=== PATIENT | female | born 1945 | race Caucasian/White ===

== ENCOUNTER 2025-05-21 10:45 | Outpatient (AMB) | payer MEDICARE, OTHER, SELFPAY ==
--- NOTE | 2025-05-21 10:56 | A.OFFPC_ITS ---
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 Patient is also c/o hiatal hernia and acid reflux. Patient needs refill on meds. 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: No Allergies atorvastatin (From Lipitor) Allergy (Severe, Verified 05/21/25 11:12) Unknown lorazepam (From Ativan) Allergy (Severe, Verified 05/21/25 11:12) Unknown morphine Allergy (Severe, Verified 05/21/25 11:12) Unknown Penicillins Allergy (Severe, Verified 05/21/25 11:12) Unknown tetraycline Allergy (Severe, Uncoded 05/21/25 11:04) Unknown Medication List - Last Reviewed 05/21/25 by Renetta Gli MA biotin mcg PO diclofenac sodium 75 mg PO BID fluticasone furoate 50 mcg/actuation inhalation hydroxyzine HCl 25 mg PO ONCE PRN omeprazole 20 mg PO DAILY rosuvastatin 10 mg PO DAILY triamcinolone acetonide 0.1% topical BID Tobacco use date assessed: 05/21/25 Fall risk assessment: No Falls in past year Last assessed Fall Risk: 05/21/25 Dental Screening Dental Screen Date: 05/21/25 Did you have a dental visit in the last 12 months?: No Did you have a dental problem in the last 6 months where you did not have access to dental care?: No Was dental information given to patient?: Patient declined HPI HPI Comments History of Present Illness Details 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, hx of bilat ovarian c ysts, GERD, hiatal hernia, HLD, rhinitis, OA, subclinical hypothyroid, Osteopenia, Dry Eyes, Vit d def, microscopic hematuria s/p tubal ligation, hemorrhoud removal, back surgery, josé antonio, jaw surgery, tonsillectomy Social: , has 1 dtr Fhx: Mom nasal/pharynx CA; dad abspetsos ca; Brother of ca (smoker); sister alive w/ spina bifida [place] [facility] Kunal wears glasses Health Maintenance: Colon: cologaurd 2019 Mammo 03/2019 DEXA 2009 PAP 2010 Vaccines: PCV 2016, declined Tdap and Flu AAA screen: EKG: History of Present Illness - The patient is a 79-year-old female pr esenting to [facility]; moved [place] after of . Now living close to her r. - Previous PCP records rec'd and reviewe d - Gastroesophageal Reflux Disease (GERD) . - Omeprazole is ineffective; voice loss 3 weeks ago - History of anxiety, stopped hydroxyzin e; reports hallucinations after abruptly stopping. No more anxiety. - Obesity, BMI 30 - Past low vitamin D. 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 - Daughter and lifestyle supportive of [employer] - Historically, blood in urine observed; no ongoing symptoms. Declined uro referral previously. - Declines tetanus due to past reactions . Review of Systems - Gastrointestinal: Reports ineffective GERD management with omeprazole; Zantac supplement. - Respiratory: Reports losing voice for a week three weeks ago. - Nervous: Denies ongoing hallucinations post-hydroxyzine cessation. - Genitourinary: Denies current urinary symptoms; history of blood in urine observed. - Ophthalmic: Reports dry eyes, managed with mais-yco-ghtlotz drops. - Psychological: Reports anxiety, discon tinued hydroxyzine; mentions significant stress post-'s passing. 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 - Immunological: Declines tetanus vaccin e; mentions adverse reactions in the past. Physical Exam General: Well developed, well nourished, in no acute distress. Appears stated age. Head: Normocephalic, atraumatic. Eyes: Pupils are equal, round and reactive to light and accommodation. Conjunctivae are clear. Vision grossly normal. Lungs: Clear to auscultation bilaterally. No rales, rhonchi or wheeze noted. Good air flow in all angel. Heart: Regular rate and rhythm. No murmurs, click, rubs or gallops are noted. Musculoskeletal: Joints are nontender, without swelling, redness, or effusions. Pulses: Peripheral pulses are equal and palpable bilaterally. Extremities: No clubbing, cyanosis nor edema is noted. Psych: Mood and affect appropriate. Results Pending Discussion Notes During the visit, we reviewed the patient's persistent GERD symptoms, discussed potential medication adjustments, including switching from omeprazole to esomeprazole with a possible dosage increase to enhance symptom control. We emphasized the option for 20 mg twice daily, allowing patient discretion for need-based consumption. Blood in urine previously observed was addressed with plans for urinalysis. Discussion on tetanus vaccine was concluded with patient declining it due to prior adverse reactions. The patient was advised to continue lifestyle improvements, exercise, and maintain the support system with her daughter. Follow-up was planned to review medication effectiveness and coordinate lab work. Patient was given time to ask questions. All questions were answered to their satisfaction. Assessment and Plan 1. Gastroesophageal Reflux Disease (GERD ) - Esomeprazole 20 mg QD, increase as ne eded. - Monitor symptom efficacy. 2. Hyperlipidemia - Continue rosuvastatin; no changes @ th is time 3. Anxiety - Discontinued hydroxyzine. - No new intervention. Sx stable. 4. Obesity - Maintain activity and diet. - Support from a daughter acknowledged. 5. Allergic Rhinitis - Continue Flonase. 6. Blood in urine - Plan urinalysis. - declined aggressive interventions 7. Vaccine - Tetanus & flu vaccine declined. RTO DEV SAWV, SOONER NEEDED. Patient Instructions - Start taking esomeprazole as prescribe d. - Continue rosuvastatin and Flonase as d irected. - Incorporate regular exercise and maint ain healthy eating. - Follow up with blood in urine check du ring labs. - Stay in touch with our office through the [facility] for any concerns or questions. Consent Patient was informed and verbally consented to the use of an ambient scribe for clinic note documentation during this visit. Total time spent caring for the patient today was 45 minutes. This includes time spent before the visit reviewing the chart, time spent during the visit, and time spent after the visit on documentation, reviewing laboratory results, diagnostic imaging, medications, performing a medically necessary evaluation, counseling on diagnoses, care coordination, ordering appropriate tests, ordering appropriate medications, review of tests performed by other providers, reporting test results with the patient, communication with other healthcare providers. [facility] Medical History (Updated 05/21/25 @ 11:38 by Luzma Pizarro, [facility]) Allergic Benign neoplasm of lymph nodes Fracture, ribs Fractured pelvis GERD (gastroesophageal reflux disease) History of bone density study (~2009) History of Papanicolaou smear of cervix (~2010) Ovarian cyst Sinusitis Surgical History (Updated 05/21/25 @ 11:15 by Renetta Gil MA) H/O oral surgery H/O tubal ligation History of colonoscopy (~2018) Hx of cholecystectomy Family History (Updated 05/21/25 @ 11:18 by Renetta Gil MA) Father Cancer Mother Cancer Brother Cancer Social History Household Members: None Both parents involved: No Caregiver staying overnight: No Housing: Condominium Are you a primary career education teacher to a significant other at home: No Do you presently have visiting nurse or other home services: No 75 years or older and lives alone: No Alcohol intake: never Patient Tobacco Use Status: Never used Tobacco e-Cigarette/Vaping Use: Never Used Second Hand Smoke Exposure: No service: No Current occupational status: retired Current occupational exposures/hazards: No Cognitive needs: No Hearing needs: No Vision needs: No Questionnaire PHQ-9 Over the last 2 weeks, how often have you been bothered by any of the following problems? 1. Little interest or pleasure in doing things: not at all 2. Feeling down, depressed, or hopeless: not at all 3. Trouble falling or staying asleep, or sleeping too much: not at all 4. Feeling tired or having little energy: not at all 5. Poor appetite or overeating: not at all 6. Feeling bad about yourself - or that you are a failure or have let yourself or your family down: not at all 7. Trouble concentrating on things, such as reading the newspaper or watching television: not at all 8. Moving or speaking so slowly that other people could have noticed. Or the opposite - being so fidgety or restless that you have been moving around a lot more than usual: not at all 9. Thoughts that you would be better off or of hurting yourself in some way: not at all Total score: 0 Depression Screening Interpretation: Negative Depression Screening Done: Yes 54819 - PHQ-9 Billing: Yes Source: Developed by Drs. Jacky Garvey, Natasha Worthy, Ceasar Clark and colleagues, with an educational suzy from [facility]. Thrive Questionnaire Date Thrive assessed: 05/21/25 I am a: Patient What is your living situation today?: I have a steady place to live Within the past 12 months, did the food you bought not last and you didn't have the money to get more?: Never true Within the past 12 months, did you worry whether your food would run out before you got money to buy more?: Never true Do you have trouble paying for medicines?: No Do you have trouble getting transportation to medical appointments?: No Do you have trouble paying your heating and electricity bill?: No Do you have trouble taking care of your child, family member or friend?: No Do you have trouble with day-to-day activities such as bathing, preparing meals, shopping, managing finances, etc.?: No Are you currently unemployed and looking for a job?: No Are you interested in more education?: No Please select the resources that you would like help with: None Currently or been in a relationship where the following occur: No concerns reported THRIVE Score: 0 AUDIT C Alcohol Use Questionnaire (AUDIT-C) 1. How often do you have a drink containing alcohol?: Never 3. How often do you have six or more drinks on one occasion?: Never Total Score: 0 Score Reviewed/Action Taken: Yes VANESSA-7 AMB Questionnaire VANESSA-7 Date VANESSA - 7 assessed: 05/21/25 Feeling nervous, anxious, or on edge: 1 = Several days Not being able to stop or control worryin = Not at all Worrying too much about different things: 0 = Not at all Trouble relaxin = Not at all Being so restless that it is hard to sit still: 0 = Not at all Becoming easily annoyed or irritable: 0 = Not at all Feeling afraid as if something awful might happen: 0 = Not at all Total VANESSA-7 score (0-4 normal; 5-9 mild; 10-14 moderate; 15-21 severe): 1 Source: Developed by Drs. Jacky Garvey, Natasha Worthy, Ceasar Clark and colleagues, with an educational suzy from [facility]. VANESSA-7 Assessment Billing VANESSA-7 Assessment Tool: VANESSA-7 Assessment 50157 Physical exam (Primary Care) Vital Signs: Last Vital Signs Temp 97.2 F 05/21/25 11:07 Pulse 55 05/21/25 11:07 Resp 12 05/21/25 11:07 BP 108/68 05/21/25 11:07 Pulse Ox 99 05/21/25 11:07 Oxygen Delivery Method Room Air 05/21/25 11:07 BMI result Body Mass Index 30.9 BMI Assessment/Plan discussion: High BMI High, discussed plan: lifestyle Tobacco/Smoking Status: Tobacco use Status Tobacco use date assessed 05/21/25 05/21/25 11:00 Patient Tobacco Use Status Never used Tobacco 05/21/25 11:00 e-Cigarette/Vaping Use Never Used 05/21/25 11:00 PHQ-9: PHQ-9 Score PHQ-9: Total score 0 05/21/25 11:00 Depression Screening Interpretation: Negative Thrive Assessment: Date of Thrive Assessment Date Thrive assessed 05/21/25 05/21/25 11:00 Currently or been in a relationship where the following occur: No concerns reported Coding Level of Care Code New Pt Level 4 (58363) Complex EM visit Add On G2211 Diagnoses Encounter to establish care with new provider Z76.89 Mixed hyperlipidemia E78.2 Hyperlipidemia type: mixed hyperlipidemia Subclinical hypothyroidism E03.8 Osteopenia, unspecified location M85.80 Osteopenia location: unspecified Vitamin D deficiency E55.9 Microscopic hematuria R31.29 Laboratory exam ordered as part of routine general medical examination Z00.00 Tetanus, diphtheria, and acellular pertussis (Tdap) vaccination declined Z28.21 Obesity (BMI 30-39.9) E66.9 Hiatal hernia with GERD K44.9; K21.9 Additional Codes VANESSA-7 Assessment Billing - VANESSA-7 Assessment Tool: VANESSA-7 Assessment 97876 ([id number]) PHQ-9 - 81373 - PHQ-9 Billing: Yes ([id number]) Assessment & Plan Assessment & Plan (1) Encounter to establish care with new provider: Code(s): Z76.89 - Persons encountering health services in other specified circumstances (2) HLD (hyperlipidemia): Code(s): E78.5 - Hyperlipidemia, unspecified Category: Medical Qualifiers: Hyperlipidemia type: mixed hyperlipidemia Qualified Code(s): E78.2 - Mixed hyperlipidemia (3) Subclinical hypothyroidism: Code(s): E03.8 - Other specified hypothyroidism Category: Medical (4) Osteopenia: Code(s): M85.80 - Other specified disorders of bone density and structure, unspecified site Category: Medical Qualifiers: Osteopenia location: unspecified Qualified Code(s): M85.80 - Other specified disorders of bone density and structure, unspecified site (5) Vitamin D deficiency: Code(s): E55.9 - Vitamin D deficiency, unspecified Category: Medical (6) Microscopic hematuria: Code(s): R31.29 - Other microscopic hematuria Category: Medical (7) Laboratory exam ordered as part of routine general medical examination: Code(s): Z00.00 - Encounter for general adult medical examination without abnormal findings Category: Medical (8) Tetanus, diphtheria, and acellular pertussis (Tdap) vaccination declined: Code(s): Z28.21 - Immunization not carried out because of patient refusal Category: Medical (9) Obesity (BMI 30-39.9): Code(s): E66.9 - Obesity, unspecified Category: Medical (10) Hiatal hernia with GERD: Code(s): K44.9 - Diaphragmatic hernia without obstruction or gangrene; K21.9 - Gastro- esophageal reflux disease without esophagitis Category: Medical Plan . Orders: Orders Complete Blood Count no Diff Today E03.8 - Other specified hypothyroidism, E55.9 - Vitamin D deficiency, unspecified, E78.5 - Hyperlipidemia, unspecified, M85.80 - Other specified disorders of bone density and structure, unspecified site, R31.29 - Other microscopic hematuria, Z00.00 - Encounter for general adult medical examination without abnormal findings Comprehensive Met. Panel Today E03.8 - Other specified hypothyroidism, E55.9 - Vitamin D deficiency, unspecified, E78.5 - Hyperlipidemia, unspecified, M85.80 - Other specified disorders of bone density and structure, unspecified site, R31.29 - Other microscopic hematuria, Z00.00 - Encounter for general adult medical examination without abnormal findings Vitamin B12 and Folate Today E03.8 - Other specified hypothyroidism, E55.9 - Vitamin D deficiency, unspecified, E78.5 - Hyperlipidemia, unspecified, M85.80 - Other specified disorders of bone density and structure, unspecified site, R31.29 - Other microscopic hematuria, Z00.00 - Encounter for general adult medical examination without abnormal findings Vitamin D 25-OH Total Today E03.8 - Other specified hypothyroidism, E55.9 - Vitamin D deficiency, unspecified, E78.5 - Hyperlipidemia, unspecified, M85.80 - Other specified disorders of bone density and structure, unspecified site, R31.29 - Other microscopic hematuria, Z00.00 - Encounter for general adult medical examination without abnormal findings Lipid Panel Today E03.8 - Other specified hypothyroidism, E55.9 - Vitamin D deficiency, unspecified, E78.5 - Hyperlipidemia, unspecified, M85.80 - Other specified disorders of bone density and structure, unspecified site, R31.29 - Other microscopic hematuria, Z00.00 - Encounter for general adult medical examination without abnormal findings Microalbumin, Random (w Creat) Today E03.8 - Other specified hypothyroidism, E55.9 - Vitamin D deficiency, unspecified, E78.5 - Hyperlipidemia, unspecified, M85.80 - Other specified disorders of bone density and structure, unspecified site, R31.29 - Other microscopic hematuria, Z00.00 - Encounter for general adult medical examination without abnormal findings TSH reflex Free T4 Today E03.8 - Other specified hypothyroidism, E55.9 - Vitamin D deficiency, unspecified, E78.5 - Hyperlipidemia, unspecified, M85.80 - Other specified disorders of bone density and structure, unspecified site, R31 .29 - Other microscopic hematuria, Z00.00 - Encounter for general adult medical examination without abnormal findings UA CC w/rflx Micro + Cult Today E03.8 - Other specified hypothyroidism, E55.9 - Vitamin D deficiency, unspecified, E78.5 - Hyperlipidemia, unspecified, M85.80 - Other specified disorders of bone density and structure, unspecified site, R30.0 - Dysuria, R31.29 - Other microscopic hematuria, Z00.00 - Encounter for general adult medical examination without abnormal findings Medications: New esomeprazole magnesium 20 mg PO BID 180 caps 2RF rosuvastatin 10 mg PO DAILY 90 tabs 0RF Patient Instructions: Walk-In Care (Urgent Care): We Make it Easy Walk-in for urgent medical issues such as: ? Seasonal Allergies ? Insect Bites ? Cough ? Diarrhea ? Acute Asthma Attacks ? Back, Knee or Joint Pain ? Ear Infection ? Fever without a Rash ? Headaches ? Nausea ? [place] [facility], Rash or Skin Irritation ? Sore Throat ? Sports Physicals ? Vomiting Most insurances are accepted. Patients do not need to be part of the [facility] to seek care at the walk-in clinic. Locations [address] [facility] , [place] [address] ? [phone] [facility] in [place] provides services to ages 18 and over. Open Saturday-Saturday: 7 a.m. to 5 p.m. and Saturday: 9 a.m. to 3 p.m.* *Hours may vary due to staffing availability. To confirm Walk-In Care hours in [place], please call [phone]. [address] [place] [address] ? [phone] [facility] in [place] provides services to ages 12 and over. Open Saturday-Saturday: 8 a.m. to 5 p.m. Hours may vary due to staffing availability. To confirm Walk-In Care hours in [place], please call [phone]. LABORATORY SERVICES: [facility] ? Primary Location [address] [place] [address] Saturday through Saturday 6:00 AM ? 5:00 PM Saturday 7:00 AM ? 11:00 AM* [phone] The [facility] is centrally located near the front entrance of the [facility] for easy outpatient access. Convenient parking is provided for outpatients. *Hours may vary due to staffing availability. To confirm Laboratory hours for any location, please call [phone]. Offsite Location For your convenience, we offer offsite laboratory draw stations at the following locations: [address] [place] [address] ? [address], [address] Saturday through Saturday 7:30 AM ? 1:00 PM* [phone] *Hours may vary due to staffing availability. To confirm Laboratory hours for any location, please call [phone]. [place] ? [address] Saturday through Saturday 6:00 AM ? 3:30 PM* Saturday 6:30 AM ? 3 PM* [phone] *Hours may vary due to staffing availability. To confirm Laboratory hours for any location, please call [phone] [place] [address] Saturday through Saturday 7:30 AM ? 4:00 PM* [phone] *Hours may vary due to staffing availability. To confirm Laboratory hours for any location, please call [phone] [place] [address] Saturday through 9:00 AM ? 4:00 PM* *Hours may vary due to staffing availability. To confirm Laboratory hours for any location, please call [phone]. Appointments are not necessary. Walk-ins are welcome. Like all the departments throughout the [facility], our Lab undergoes frequent reviews to ensure the quality and accuracy of test results, and our staff takes special pride in its status as a nationally accredited facility. Patient Portal: [facility] ONE PATIENT. ONE RECORD. BETTER CARE. [facility] has a fully integrated, cutting- edge mobile electronic health information system that has revolutionized the way we care for our patients and manage our organization. This system improves communication and coordination enabling us to provide safe, higher-quality care, and an overall positive experience for staff and patients. Our first priority, as always, is to deliver the highest quality care possible. The system is running in the background supporting that priority. This portal is for all [facility] services and practices. If you are experiencing any technical difficulties with enrolling or logging into the Patient Portal please complete the [facility] Patient Portal Technical Support Form. [facility] now offers a new secure on-line interactive tool for patients to review their health information ? ?Patient Portal. This interactive web portal will enable patients and their families to take an active role in their care by providing easy, secure access to their health information via the internet. The Patient Portal provides patients with instant access to their health information, including laboratory results, medications, allergies, demographic information, visit history, and more. In addition to managing their own care, parents and health care proxies with authorized consent will appreciate the ability to access the records of those individuals for whom they provide care. Please note: if you wish to gain access (Proxy) to another patient?s portal, you will be required to come to the Medical Records Department in person at [facility]. Both the patient giving proxy access and the proxy will need to provide photo identification and complete the appropriate authorization. The Patient Portal also allows track their appointments online. The [facility] Patient Portal also saves patients time by allowing them to submit updates to their demographic and contact information prior to their visits. Portal email notifications will also alert patients to any new activity on their portal, such as test results and new appointments. In order to initially enroll in the [facility] Patient Portal, you will need to enter some required information including the following: * your [facility] Medical Record number * your personal home email address * name * date of Please note: In order to enroll in the [facility] Patient Portal, we need to have your email address on file in your electronic medical record. ?The email address needs to be specific for one person (yourself) in order for your Portal enrollment to be successful. ?You can update your email address in person with our Registration staff when you are registering for a hospital visit. ?Otherwise, you will need to come to the Health Information Management (Medical Records) Department at [facility]. ?We are open from Saturday ? Saturday from 7:30 a.m. ? 4:30 p.m. ?You will be required to present a photo id. Once you have successfully enrolled in the Patient Portal, you will receive a one-time user id and password for the Portal, sent to your email address. ?This will allow you to log into the Patient Portal within 99 hrs and reset your own logon id and password, and define personal security questions. ?Once your permanent login and password have been set, you can log into the [facility] Patient Portal at any time via the blue button above or from the Portal Logon button on any page of the [facility] website. [facility] Center and [facility] encourage all of our patients to enroll in Patient Portal as it presents a valuable opportunity for patients a nd their families to actively participate in their care and stay healthy Welcome to [facility]. ?We look forward to working with you.
[2025-05-21 11:07] VITALS: BP 108/68; PULSE 55; RESP 12; TEMP 36.2; O2SAT 99; BMI 30.9
--- OUTSIDE RECORDS SUMMARY | 2025-05-21 11:46 | XMS_ITS | Clinical Summary ---
Author Organization [facility] [address] [place] [address] [place] [address] Phone Care Team Providers Care Art Historian Name Role Phone Physician, No Pcp Primary Care Provider Unavaila ble Allergies Active Allergy Reactions Criticality Noted Date Comments Penicillins Rash 08/28/2024 Medications omeprazole (PriLOSEC) [address] capsule Take 1 capsule (20 mg total) by mouth 1 (one) time each day. 03/30/2024 Active rosuvastatin (CRESTOR) 10 mg tablet Take 1 tablet (10 mg total) by mouth 1 (one) time each day. 12/20/2023 Active diclofenac (VOLTAREN) 75 mg EC tablet TAKE 1 TABLET(75 MG) BY MOUTH TWICE DAILY. DO NOT CRUSH, CHEW, OR SPLIT 60 tablet 3 04/21/2025 Active Active Problems Problem Noted Date Diagnosed Date Abnormal stress test 04/05/2025 Encounters Date Type Department Care Team Description 04/14/2025 9:30 AM EDT Office Visit Orthopedics - [address] [phone] César Landers PA Primary osteoarthritis of left knee (Primary Dx); SI (sacroiliac) pain from Last 3 Months Social History Tobacco Use Types Packs/Day Years Used Date Smoking Tobacco: Never Passive Smoke Exposure: Past Smokeless Tobacco: Never Tobacco Cessation:Counseling Given: Not Answered Alcohol Use Standard Drinks/Week Comments Not Currently 0 (1 standard drink = 0.6 oz pur e alcohol) Comments No Sex and Gender Information Value Date Recorded Sex Assigned at Not on file Legal Sex Female 11:36 AM EDT Gender Identity Not on file Sexual Orientation Not on file Obstetrics History Last Filed Vital Signs Vital Sign Reading Time Taken Comments Blood Pressure - - Pulse - - Temperature - - Respiratory Rate 16 04/14/2025 9:20 AM EDT Oxygen Saturation - - Inhaled Oxygen Concentration - - Weight 73.5 kg (162 lb) 04/14/2025 9:20 AM EDT Height 152.4 cm (5') 04/14/2025 9:20 AM EDT Body Mass Index 31.64 04/14/2025 9:20 AM EDT Plan of Treatment Health Maintenance Due Date Last Done Comments DTaP,Tdap,and Td Vaccines (1 - Tdap) 1964 Pneumococcal Vaccine: 50+ Ye ars (1 of 1 - PCV) 1995 Zoster Vaccines (1 of 2) 1995 RSV Immunization Adult Patie nts (1 - 1-dose 75+ series) 2020 Falls Risk Assessment 07/04/2024 Hepatitis C Screening 07/04/2024 Medicare Annual Wellness Visit 07/04/2024 Osteoporosis Screening (Bone Density Screening) 07/04/2024 Social Influencers of Health Screening 07/04/2024 Depression Screening 09/16/2024 COVID-19 Vaccine (2023-2 5 season) 2025 Influenza Vaccine (#1) 2025 HIB Vaccines Aged Out No longer eligi ble based on patient's age to complete this topic HPV Vaccines Aged Out No longer eligi ble based on patient's age to complete this topic Hepatitis A Vaccines Aged Out No long er eligible based on patient's age to complete this topic Hepatitis B Vaccines Aged Out No long er eligible based on patient's age to complete this topic IPV Vaccines Aged Out No longer eligi ble based on patient's age to complete this topic MMR Vaccines Aged Out No longer eligi ble based on patient's age to complete this topic Meningococcal ACWY Vaccine Aged Out N o longer eligible based on patient's age to complete this topic Meningococcal B Vaccine Aged Out No l onger eligible based on patient's age to complete this topic RSV Immunization Patients Un fariba 20 months Aged Out No longer eligible b ased on patient's age to complete this topic Varicella Vaccines Aged Out No longer eligible based on patient's age to complete this topic Procedures Procedure Name Priority Date/Time Associated Diagnosis Comments WA ARTHROCENTESIS/ASP IRATION/INJECTION MAJOR JOINT/BURSA W/O U/S GUIDANCE Routine 04/14/2025 9:30 AM EDT Primary osteoarthritis of left knee from Last 3 Months Results * WA ARTHROCENTESIS/ASPIRATION/INJECTION MAJOR JOINT/BURSA W/O U/S GUIDANCE (04/14/2025 9:30 AM EDT) César Villela PA - 04/14/2025 9:30 AM EDT BARRERA Jean Baptiste 04/14/2025 10:08 AM L Inj/Asp: L knee Indications: pain Details: 22 G needle, anterolateral approach Medications: 60 mg hyaluronate sodium, stabilized 60 mg/3 mL Informed Consent: Site: Knee Laterality: Left Relevant images/test results available and reviewed: yes Health status cleared: Yes Procedure/treatment, purpose, treatment alternatives, risks/potential complications and benefits explained: yes Risk/complications/benefits details: Risks include but are not limited to: The treatment may not accomplish the desired results. Additionally bleeding, infection, damage to tendon, nerve, cartilage, muscle; thinning or lightening of the skin in the area of injection; flushing or redness of the face, elevated blood pressure or blood sugar, allergic reaction, rash, increased pain Benefits include relief of inflammation and pain Patient questions answered: yes Patient agrees, verbalizes understanding, and wants to proceed: yes Consent given by: Patient Informed consent discussion completed by Physician/CODY with patient: Verbal Pre-procedure timeout performed: yes César RUST IN CLINIC/BEDSIDE ORDERABLES Fin al Result from Last 3 Months Insurance MEDICARE [facility] Care Teams Art Historian Relationship Specialty Start Date End Date Physician, No Pcp PCP - General 01/20/25
== END 2025-05-21 11:30 | disposition home or self-care (01) ==
PROVIDERS: PCP Nurse Practitioner Family; Visit Provider Nurse Practitioner Family
DX: E78.2 Mixed hyperlipidemia (principal); E66.9 Obesity, unspecified; E03.8 Other specified hypothyroidism; Z68.30 Body mass index [BMI] 30.0-30.9, adult; M85.80 Other specified disorders of bone density and structure, unspecified site; E55.9 Vitamin D deficiency, unspecified; R31.29 Other microscopic hematuria; Z76.89 Persons encountering health services in other specified circumstances; Z28.21 Immunization not carried out because of patient refusal; K44.9 Diaphragmatic hernia without obstruction or gangrene; K21.9 Gastro-esophageal reflux disease without esophagitis

== ENCOUNTER 2025-05-21 10:45 | Outpatient (REF) | payer MEDICARE, OTHER, SELFPAY ==
[2025-05-21 14:31] LABS: Hematocrit 38.7 % (37.0-47.0); Hemoglobin 12.4 g/dl (12.0-16.0); Mean Corpuscular HGB Conc 32.0 g/dl (31.0-35.0); Mean Corpuscular Hemoglobin 29.1 pg (27.0-33.0); Mean Corpuscular Volume 90.8 fL (80.0-98.0); NRBC Abs Auto 0.000 X10*3/uL (0.0-0.012); NRBC Pct Auto 0.0 /100WBC (0.0-0.2); Platelet Count 291 X10*3/uL (160-400); Red Blood Count 4.26 X10*6/uL (4.20-5.50); White Blood Count 6.0 X10*3/uL (4.8-10.8)
[2025-05-21 14:52] LABS: Alanine Aminotransferase 36 U/L (0-31); Albumin Level 4.4 g/dL (3.5-5.0); Alkaline Phosphatase 86 U/L (39-117); Anion Gap 13 (12-20); Aspartate Amino Transferase 24 U/L (5-31); Blood Urea Nitrogen 22 mg/dL (9-16); Calcium 9.4 mg/dL (8.4-10.2); Carbon Dioxide 28 mmol/L (22-29); Chloride 105 mmol/L (96-108); Cholesterol 201 mg/dL (<200); Estimated Glomerular Filt Rate 50; HDL Cholesterol 45 mg/dL (>40); Potassium 5.0 mmol/L (3.3-5.1); Sodium 141 mmol/L (135-145); Total Protein 7.0 g/dL (6.5-8.0); Triglycerides 218 mg/dL (<150)
[2025-05-21 16:00] LABS: Folate 14.1 ng/mL (> or = 4.0); Vitamin B12 348 pg/mL (200-900)
== END 2025-05-21 10:46 | disposition home or self-care (01) ==
LOC: HO.WFDLDS 10:45
PROVIDERS: PCP Nurse Practitioner Family; Visit Provider Nurse Practitioner Family
DX: Z00.00 Encounter for general adult medical examination without abnormal findings (principal); E78.5 Hyperlipidemia, unspecified; E03.8 Other specified hypothyroidism; E55.9 Vitamin D deficiency, unspecified; M85.80 Other specified disorders of bone density and structure, unspecified site; R31.29 Other microscopic hematuria; E78.2 Mixed hyperlipidemia; Z28.21 Immunization not carried out because of patient refusal; E66.9 Obesity, unspecified; K44.9 Diaphragmatic hernia without obstruction or gangrene; K21.9 Gastro-esophageal reflux disease without esophagitis; Z79.899 Other long term (current) drug therapy; Z76.89 Persons encountering health services in other specified circumstances; Z68.30 Body mass index [BMI] 30.0-30.9, adult
CPT/HCPCS: 36415; 80053; 80061; 82306; 82607; 82746; 84443; 85027; 96127; 99202

== ENCOUNTER 2025-09-01 12:58 | Outpatient (AMB) | payer MEDICARE, OTHER, SELFPAY ==
--- NOTE | 2025-09-01 13:01 | A.OFFVIS_ITS ---
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 Required: No Allergies atorvastatin (From Lipitor) Allergy (Severe, Verified 09/01/25 13:02) Unknown lorazepam (From Ativan) Allergy (Severe, Verified 09/01/25 13:02) Unknown morphine Allergy (Severe, Verified 09/01/25 13:02) Unknown Penicillins Allergy (Severe, Verified 09/01/25 13:02) Unknown tetraycline Allergy (Severe, Uncoded 09/01/25 13:02) Unknown Medication List - Last Reconciled 09/01/25 by Luzma Pizarro, GENERATOR REPAIRER-BC biotin mcg PO diclofenac sodium 75 mg PO BID esomeprazole magnesium 20 mg PO BID fluticasone furoate 50 mcg/actuation inhalation rosuvastatin 10 mg PO DAILY triamcinolone acetonide 0.1% topical BID Do you need a note to return to daycare/school/sports/work: No HPI HPI Comments History of Present Illness Details Here today for AWV. The Medicare Annual Wellness Visit (AWV) is a yearly appointment with a health professional to identify health risks and help reduce them and to create or update a personalized prevention plan. During a Medicare AWV, health professionals should also review any current opioid prescriptions, detect any cognitive impairment, and establish or update medical and family history. 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, hx of bilat ovarian c ysts, GERD, hiatal hernia, HLD, rhinitis, OA, subclinical hypothyroid, Osteopenia, Dry Eyes, Vit d def, microscopic hematuria, obesity s/p tubal ligation, hemorrhoud removal, back surgery, josé antonio, jaw surgery, tonsillectomy Social: , has 1 dtr Crystal Fhx: Mom nasal/pharynx CA; dad abspetsos ca; Brother of ca (smoker); sister alive w/ spina bifida Health Maintenance: Colon: cologaurd 2018, cologaurd ordered today Mammo 03/2019, new order placed today DEXA 2009, new order placed today PAP 2010 Vaccines: PCV 2016, declined Tdap and Flu AAA screen: EKG: done today NSR Labs 05/21/25 LDL 113, TC 201, TG 218 A1c today 5.1% [facility] Opt Kunal wears glasses Visual Acuity: wears glasses, last exam this year Hearing Screening: [place], referred for hearing test today ACP: has HCP and Living will at home, will provide copies to me via portal Dietary/Nutrition/Exercise Edu provided: Y During the course of the visit the patient was educated and counseled about appropriate screening and preventative services. Patient instructions were provided to the patient in written or electronic format. I have reviewed and verified the above information. History of Present Illness The patient is a 79 year old female presenting for her annual Medicare wellness visit. Gastroesophageal Reflux Disease: - The patient reports persistent symptom s of gastroesophageal reflux disease (GERD), which she states is severe and has led to tooth loss. - She has been taking esomeprazole 20 mg twice daily, but finds it is no longer effective. - She reports her symptoms are exacerbat ed when she overeats. - Wonders about taking pantoprazole Obesity: - The patient has obesity with a BMI of 30.4. - She reports difficulty with portion co ntrol, particularly since her , as he used to manage the cooking. - She denies eating between meals but ea ts large portions at mealtimes. - She has a history of trying various di ets, including Weight Watchers, and has used fen-phen in the past. - The patient inquired about weight loss medication to help manage her eating habits. - Wonders about GLP-1 but aware of GI s cristobal effects Alopecia: - The patient reports hair loss with a r eceding hairline and thinning at her part. - She has been taking biotin for a long time. - She notes the hair loss seems to be fr om the follicle and not just breakage. - She denies any family history of hair loss. - She associates the onset with the stre ss following her 's , though she notes it did not occur during his five-year illness. 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 - She can feel the outbreaks coming on w ith a tingling sensation and initiates valacyclovir 500 mg. - She believes her prior regimen was one tablet daily during a flare. - She also uses qkkg-ruo-adwkppv Abreva topically. Allergic Rhinitis: - The patient requests a refill of Flona se for sinus symptoms, particularly to get through the winter. - She used it daily while in [place] due to bad sinus issues but has not used it recently as she did not have it. Past Medical History - Gastroesophageal reflux disease, sever e - Obesity - History of oral herpes simplex virus - Allergic rhinitis/sinus disease - History of depression following florentin warren's , previously on medication but stopped - History of fen-phen use for weight los s Social History - The patient is a ; her larisa ssed away last year after a 5-year illness. - She lives alone. - Her late was responsible for c ooking and portioning meals, and she now struggles with portion control. - She reports a history of multiple diet attempts, including Weight Watchers. - Her daughter is involved in her care a nd acts as her medical proxy. Health Maintenance - Reviewed normal EKG and labs (A1c, lip ids). - Patient has advance directives (health care proxy and living will) and was instructed to upload them to the patient portal. Review of Systems - Integumentary: Reports hair loss, prim arily at the frontal hairline and part. Reports a persistent itchy rash on her back. - ENT: Reports hearing loss. Reports sin us issues. Denies issues with vision, wears glasses. - GI: Reports severe acid reflux, not im proving with current medication. Denies constipation and notes that collagen supplement helps with regular bowel movements. Physical Exam General: Well developed, well nourished, in no acute distress. Appears stated age. Obesity with a BMI of 30.4. Head: Normocephalic, atraumatic. Eyes: Pupils are equal, round and reactive to light and accommodation. Conjunctivae are clear. Scleras nonicteric bilat. Vision grossly normal. Ears: TMs clear AU, EACS WNL. Cerume R eac cleared w/ lavage Nose: Patent, without discharge. Neck: No carotid bruit bilat. Supple, no adenopathy or thyromegaly. Breast: Edu on SBE Lungs: Clear to auscultation bilaterally. No rales, rhonchi or wheeze noted. Good air flow in all angel. Heart: Regular rate and rhythm. No murmurs, click, rubs or gallops are noted. EKG shows normal sinus rhythm with normal axis, no ST elevations. Abdomen: Bowel sounds present in all quadrants. The abdomen is soft, tender over epigastrum, with no masses or organomegaly noted. No hernias are noted. : Deferred. Reviewed recommendations for routine DIRECTOR OF NURSING. Pulses: Peripheral pulses are equal and palpable bilaterally. Extremities: No clubbing, cyanosis nor edema is noted. Neurologic: Gait and station normal. Cranial Nerves 2-12 intact. Motor strength grossly symmetrical and intact. No sensory loss. Balance normal. Skin: No ulcers, or lesions noted. Turgor is good. Skin color is good. Hair and nails are without abnormalities. Patient reports hair loss and is advised to try topical Rogaine. Mild recession of hair L frontal , faint erythematous rash w/ secondary excoriations noted to upper back Psych: Normal eye contact, affect and mood appropriate, and normal interactions. Patient is alert and appropriate to context. Discussed potential use of Wellbutrin for weight management and mood. Results - EKG: Normal sinus rhythm with normal a xis and no ST elevations. - Labs (Today): A1c 5.1%. - Labs (05/21/2025): LDL 113 mg/dL, Tota l Cholesterol 201 mg/dL, Triglycerides 218 mg/dL. Medical Decision Making The patient is a 79-year-old female here for her annual wellness visit with several chronic complaints. Her primary concern is uncontrolled GERD despite being on esomeprazole 20 mg twice daily. Given that pantoprazole is in the same PPI class, the decision was made to augment her current therapy by adding an H2 hector, famotidine, to target acid production via a different pathway. For weight management, the patient expressed interest in medication due to struggles with portion control. GLP-1 agonists were deemed inappropriate due to her severe GERD and likely insurance denial. After discussing the options of metformin, naltrexone, and Wellbutrin, the patient and her daughter opted for Wellbutrin due to its more favorable GI side effect profile in her case. The medication is intended to help with portion control by blocking reward centers and providing mild stimulation. For her hair loss, which she has been treating with biotin, mqtf-deg-hjgnyqo topical Rogaine was recommended to stimulate follicular growth. For her persistent skin rash and pruritus, a trial of an scge-nma-sbsnfoq antihistamine, Claritin, was recommended. Health maintenance included reviewing her normal EKG and non-diabetic A1c. A referral was placed for a hearing test due to her reported hearing loss, and an in-office ear flush was arranged for impacted cerumen in the R ear which could interfere with testing. Medications for allergic rhinitis (Flonase) and herpes simplex (valacyclovir, Abreva) were refilled as requested. We also discussed advance care planning, and she will provide copies of her healthcare proxy and living will. Mammo, DEXA and cologuard were also ordered. Plan 1. Gastroesophageal Reflux Disease - The patient's esomeprazole 20 mg twice daily is not providing adequate relief. - Will augment therapy by adding famotid ine (Pepcid) 20 mg. - Instructed to start with one tablet at bedtime for 2-3 weeks and increase to twice daily if symptoms persist. 2. Obesity - After discussing risks and benefits of various weight loss medications (GLP- 1s, metformin, naltrexone), the patient has elected to try Wellbutrin. - Prescribed Wellbutrin 150 mg once manuel y in the morning. - Patient counseled that it can take 2-6 weeks to see effects, and the goal is improved portion control and curbing mindless eating rather than rapid weight loss. - Main side effects discussed include co nstipation and potential for anxiety. - Follow-up in 90 days to assess progres s. 3. Alopecia - Recommended trial of iptb-xpy-jpkagbv topical Rogaine to stimulate hair growth at the follicles. 4. Herpes Simplex - Renewed prescription for valacyclovir 500 mg tablets, 30 tabs with refills, to be used as needed at the first sign of an outbreak. - A prescription for topical Abreva was sent to the pharmacy to see if it would be covered by insurance. 5. Allergic Rhinitis - Renewed prescription for Flonase nasal spray, to be used daily as needed for sinus symptoms. 6. Hearing Loss - Placed a referral for a formal hearing test at [facility]. 7. Impacted Cerumen R - Patient reports attempting over-the-co unter wax removal drops without success. - Will have R ear flushed in the office today. 8. Pruritus - Recommended a trial of ynfo-fmq-mqqfbz r Claritin (plain, not combo product) once daily for four weeks to address chronic itching. - Instructed to stop if it is not helpfu l and let me know. Patient Instructions - For acid reflux, continue taking esome prazole twice a day. Start taking one Pepcid (famotidine) 20 mg tablet at bedtime. If your symptoms are not better in 2-3 weeks, you can increase the Pepcid to twice a day. - For weight loss, start taking Wellbutr in 150 mg once a day in the morning. This may cause constipation, so be sure to drink plenty of water. - For hair loss, you can try using over- the-counter topical Rogaine for women as directed on the package. - For the itchy rash on your back, try t aking one xjij-yuk-aengbeb Claritin tablet daily for a few weeks. Make sure it is plain Claritin and not a combination product. - Your prescriptions for Flonase (for si nuses) and Valacyclovir (for cold sores) have been refilled. - We will flush the wax out of your left ear today. - A referral has been sent for a hearing test. The hearing center will call you to schedule an appointment. - Please provide a copy of your healthca re proxy and living will documents for your medical record. You can upload them to the patient portal. - Please schedule a follow-up appointmen luis carlos in 90 days to check on your progress. Consent The patient verbally consented to the plan of care, including medication changes, referrals, and in-office procedures, after a discussion of the rationale, risks, and benefits. The patient's daughter was also present for parts of the discussion and consented to the plan. Patient was informed and verbally consented to the use of an ambient scribe for clinic note documentation during this visit. An additional 40 minutes was spent addressing the problem(s) noted at today visit. This includes time spent before the visit reviewing the chart, time spent during the visit, and time spent after the visit on documentation reviewing laboratory results, diagnostic imaging, medications, performing a medically necessary evaluation, counseling on diagnoses, care coordination, ordering appropriate tests, ordering appropriate medications, review of tests performed by other providers, reporting test results with the patient, communication with other healthcare providers. [facility] Medical History (Updated 09/01/25 @ 14:39 by Luzma Pizarro, GENERATOR REPAIRER-) Allergic Benign neoplasm of lymph nodes Fracture, ribs Fractured pelvis GERD (gastroesophageal reflux disease) History of bone density study (~2009) History of Papanicolaou smear of cervix (~2010) Ovarian cyst Sinusitis Surgical History (Updated 05/21/25 @ 11:15 by Renetta Gil MA) H/O oral surgery H/O tubal ligation History of colonoscopy (~2018) Hx of cholecystectomy Family History (Updated 05/21/25 @ 11:18 by Renetta Gil MA) Father Cancer Mother Cancer Brother Cancer Social History (Updated 05/21/25 @ 11:12 by Renetta Gil MA) Household Members: None Both parents involved: No Caregiver staying overnight: No Housing: Condominium Are you a primary career services assistant to a significant other at home: No Do you presently have visiting nurse or other home services: No 75 years or older and lives alone: No Alcohol intake: never Patient Tobacco Use Status: Never used Tobacco e-Cigarette/Vaping Use: Never Used Second Hand Smoke Exposure: No service: No Current occupational status: retired Current occupational exposures/hazards: No Cognitive needs: No Hearing needs: No Vision needs: No Questionnaire Medicare Wellness Checkup [age] What gender do you identify with?: female During the past 4 weeks, how much have you been bothered by emotional problems such as feeling anxious, depressed, irritable, sad or downhearted, and blue?: not at all During the past 4 weeks, has your physical & emotional health limited your social activities with family, friends, neighbors, or groups?: not at all During the past 4 weeks, how much bodily pain have you generally had?: no pain During the past 4 weeks, was someone available to help you if you needed & wanted help?: yes, as much as I wanted During the past 4 weeks, what was the hardest physical activity you could do for at least 2 minutes?: moderate Can you get to places out of walking distance without help? (For eg., can you travel alone on buses, taxis or drive your car?): Yes Can you go shopping for groceries or clothes without someone's help?: Yes Can you prepare your own meals?: Yes Can you do your housework without help?: Yes Because of any health problems, do you need the help of another person with your personal care needs such as eating, bathing, dressing or getting around the house?: No Can you handle your own money without help?: Yes During the past 4 weeks, how would you rate your health in general?: excellent During the past 4 weeks how have things been going for you?: very well; could hardly better Are you having difficulties driving your car?: no Do you always fasten your seat belt when you are in a car?: yes, usually During past 4 weeks, have you been bothered by the following: never: Falling or dizzy when standing up, Sexual problems?, Trouble eating well?, Teeth or denture problems?, Problems using the telephone? and Tiredness or fatigue? Have you fallen 2 or more times in the past year?: No Are you afraid of falling?: No Are you a smoker?: no During the past 4 weeks, how many drinks of wine, beer, or other alcoholic beverages did you have?: no alcohol at all Do you exercise for about 20 minutes 3 or more times a week?: yes, some of the time Have you been given information to help with the following?: no: Hazards in your house that might hurt you? and no: Keeping track of your medications? How often do you have trouble taking medicines the way you have been told to take them?: I always take medicine as prescribed How confident are you that you can control & manage most of your health p roblems?: very confident What is your race?: White Activity of Daily Living Bathing - sponge bath, tub bath or shower: receives no assistance (gets in/out by self, if usual bathing means Dressing - getting clothes from closets & drawers, including inner/outer garments & fasteners.: gets clothes & gets completely dressed without help Toileting - going to the 'toilet room' for urine/bowel elimination & cleaning self/arranging clothes: goes to toilet room, cleans self, arranges clothes without help Transfer: moves in & out of bed and chair without help (may use support object) Continence: controls urination/bowel movements completely by self Feeding: feeds self without help Total Score: 0 Information obtained from: patient Using telephone: independent Traveling: independent Shopping: independent Preparing meals: independent Housework: independent Taking medicine: independent Managing money: independent PHQ-9 Over the last 2 weeks, how often have you been bothered by any of the following problems? 1. Little interest or pleasure in doing things: not at all 2. Feeling down, depressed, or hopeless: not at all 3. Trouble falling or staying asleep, or sleeping too much: not at all 4. Feeling tired or having little energy: not at all 5. Poor appetite or overeating: not at all 6. Feeling bad about yourself - or that you are a failure or have let yourself or your family down: not at all 7. Trouble concentrating on things, such as reading the newspaper or watching television: not at all 8. Moving or speaking so slowly that other people could have noticed. Or the opposite - being so fidgety or restless that you have been moving around a lot more than usual: not at all 9. Thoughts that you would be better off or of hurting yourself in some way: not at all Total score: 0 Depression Screening Interpretation: Negative Depression Screening Done: Yes 35951 - PHQ-9 Billing: Yes Source: Developed by Drs. Jacky Garvey, Natasha Worthy, Ceasar Clark and colleagues, with an educational suzy from [employer]. Physical Exam Vital Signs: Last Vital Signs Temp 97.7 F 09/01/25 13:07 Pulse 58 09/01/25 13:07 Resp 12 09/01/25 13:07 BP 138/76 09/01/25 13:07 Pulse Ox 98 09/01/25 13:07 Oxygen Delivery Method Room Air 09/01/25 13:07 BMI result Body Mass Index 30.4 Office Procedures Cerumen Removal From which ear canal was the cerumen removed: right Removal: irrigation Notes: patient tolerated procedure well, no complications and ear canal clear [id number] Irrigation/Lavage EKG [id number], Complete Vision Screening Right Eye: 20/40 Left Eye: 20/30 Bilateral: 20/40 Color: Pass Corrected: Pass (wearing glasses) 60105 - Vision Screening Results AMB Hemoglobin A1c AMB Hemoglobin A1c 5.1 % Last Edit by Renetta Gil MA on 09/01/25 13:52 Results Reviewed Results Reviewed: Laboratory Last Values Hgb A1c (Clinic) 5.1 % (4.0-6.0) 09/01/25 13:11 05/21/25 Test Result Units Range Flag Collected White Blood Count 6.0 X10*3/uL (4.8-10.8) 05/21/25 Red Blood Count 4.26 X10*6/uL (4.20-5.50) 05/21/25 Hemoglobin 12.4 g/dl (12.0-16.0) 05/21/25 Hematocrit 38.7 % (37.0-47.0) 05/21/25 Mean Corpuscular Volume 90.8 fL (80.0-98.0) 05/21/25 Mean Corpuscular Hemoglobin 29.1 pg (27.0-33.0) 05/21/25 Mean Corpuscular Hemoglobin Concent 32.0 g/dl (31.0-35.0) 05/21/25 Red Cell Distribution Width 12.9 % (11.0-16.0) 05/21/25 Platelet Count 291 X10*3/uL (160-400) 05/21/25 Mean Platelet Volume 10.8 fL (9.4-12.3) 05/21/25 Nucleated RBC Absolute Count (auto) 0.000 X10*3/uL (0.0-0.012) 05/21/25 Nucleated Red Blood Cells % (auto) 0.0 /100WBC (0.0-0.2) 05/21/25 Sodium Level 141 mmol/L (135-145) 05/21/25 Potassium Level 5.0 mmol/L (3.3-5.1) 05/21/25 Chloride Level 105 mmol/L (96-108) 05/21/25 Carbon Dioxide Level 28 mmol/L (22-29) 05/21/25 Anion Gap 13 (12-20) 05/21/25 Blood Urea Nitrogen 22 mg/dL (9-16) High 05/21/25 Creatinine 1.06 mg/dL (0.5-1.4) 05/21/25 Estimated Creatinine Clearance Calc Not Reportable 05/21/25 Estimat Glomerular Filtration Rate 50 05/21/25 Random Glucose 92 mg/dL (60-115) 05/21/25 Calcium Level 9.4 mg/dL (8.4-10.2) 05/21/25 Total Bilirubin 0.3 mg/dL (0.0-1.0) 05/21/25 Aspartate Amino Transf (AST/SGOT) 24 U/L (5-31) 05/21/25 Alanine Aminotransferase (ALT/SGPT) 36 U/L (0-31) High 05/21/25 Alkaline Phosphatase 86 U/L (39-117) 05/21/25 Total Protein 7.0 g/dL (6.5-8.0) 05/21/25 Albumin 4.4 g/dL (3.5-5.0) 05/21/25 Triglycerides Level 218 mg/dL (<150) High 05/21/25 Cholesterol Level 201 mg/dL (<200) High 05/21/25 LDL Cholesterol, Calculated 113 mg/dL (<100) High 05/21/25 HDL Cholesterol 45 mg/dL (>40) 05/21/25 Vitamin B12 Level 348 pg/mL (200-900) 05/21/25 25-Hydroxy Vitamin D Total 38.1 ng/mL (>30) 05/21/25 Folate 14.1 ng/mL (> or = 4.0) 05/21/25 Thyroid Stimulating Hormone (TSH) 2.61 uIU/mL (0.32-4.0) 05/21/25 Assessment & Plan Assessment & Plan (1) Encounter for subsequent annual wellness visit (AWV) in Medicare patient: Onset Date: ~09/01/25 Code(s): Z00.00 - Encounter for general adult medical examination without abnormal findings (2) ACP (advance care planning): Code(s): Z71.89 - Other specified counseling (3) Obesity (BMI 30-39.9): Code(s): E66.9 - Obesity, unspecified (4) Hair loss: Code(s): L65.9 - Nonscarring hair loss, unspecified (5) Hiatal hernia with GERD: Code(s): K44.9 - Diaphragmatic hernia without obstruction or gangrene; K21.9 - Gastro- esophageal reflux disease without esophagitis (6) Hearing loss: Code(s): H91.90 - Unspecified hearing loss, unspecified ear (7) Impacted cerumen, right ear: Code(s): H61.21 - Impacted cerumen, right ear (8) Menopause: Code(s): Z78.0 - Asymptomatic menopausal state Plan . Orders: Orders AMB Hemoglobin A1c Today H91.90 - Unspecified hearing loss, unspecified ear, Z13.9 - Encounter for screening, unspecified MM tomosynthesis screening BI Today Z12.31 - Encounter for screening mammogram for malignant neoplasm of breast XR DEXA axial skeleton Today Z13.820 - Encounter for screening for osteoporosis, Z78.0 - Asymptomatic menopausal state Referrals Audiology Referral H91.90 - Unspecified hearing loss, unspecified ear Cologuard Test Z12.11 - Encounter for screening for malignant neoplasm of colon Medications: New fluticasone propionate 50 mcg/actuation (Flonase Allergy Relief) administer into each nostril 1 spray intranasal BID 48 grams 2RF 90 days famotidine (Pepcid) 20 mg PO BID 180 tabs 2RF 90 days valacyclovir 500 mg PO DAILY 30 tabs 1RF docosanol 10% (Abreva) 1 appl topical ONCE 2 grams 1RF bupropion HCl XL (Wellbutrin XL) 150 mg PO QAM 90 tabs 0RF Patient Instructions: Patient Instructions - For acid reflux, continue taking esomeprazole twice a day. Start taking one Pepcid (famotidine) 20 mg tablet at bedtime. If your symptoms are not better in 2-3 weeks, you can increase the Pepcid to twice a day. - For weight loss, start taking Wellbutrin 150 mg once a day in the morning. This may cause constipation, so be sure to drink plenty of water. - For hair loss, you can try using yvlc-bom-lwcnqno topical Rogaine for women as directed on the package. - For the itchy rash on your back, try taking one baru-pbc-ahntyac Claritin tablet daily for a few weeks. Make sure it is plain Claritin and not a combination product. - Your prescriptions for Flonase (for sinuses) and Valacyclovir (for cold sores) have been refilled. - We will flush the wax out of your right ear today. - A referral has been sent for a hearing test. The hearing center will call you to schedule an appointment. - Please provide a copy of your healthcare proxy and living will documents for your medical record. You can upload them to the patient portal. - Please schedule a follow-up appointment in 90 days to check on your progress. Quality Reporting (2019) Adult ([facility] 138/2/69) Smoking risk assessment performed?: Yes Patient Tobacco Use Status: Never used Tobacco Depression screening performed: Yes Screen Results: Yes Negative screen Systolic BP not done?: No Diastolic BP not done?: No BMI screening not done: No Sexual Activity Screening ([facility] 153) Sexually active?: No Immunizations ([facility] 147, 117) Annual Influenza Vaccine: No Flu Vaccine not done: patient reason Measles Antibody Test: No Mumps Antibody Test: No Rubella Antibody Test: No Varicella Antibody Test: No Anti Hepatitis A IgG Antigen test: No Anti Hepatitis B Virus Surface Ab test: No Fall Risk Screening ([facility] 139) Last assessed Fall Risk: 09/01/25 Fall risk assessment: No Falls in past year Dementia Assessment ([facility] 149) Cognitive assessment recorded: Yes Assessment of cognition with standardized tool: Yes Depression/Bipolar (159/160/161/177) PHQ-9: Total score: 0 Ophthalmol:Cataracts Visual Acuity (133) Visual acuity exam performed: Yes Coding Level of Care Code Medicare Subsequent (G0439) Est Pt Level 5 (50881) Diagnoses Encounter for subsequent annual wellness visit (AWV) in Medicare patient Z00.00 ACP (advance care planning) Z71.89 Obesity (BMI 30-39.9) E66.9 Hair loss L65.9 Hiatal hernia with 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; 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 Hearing loss H91.90 Impacted cerumen, right ear H61.21 Menopause Z78.0 CPT Codes Advance Care Planning - Time spent: 16-45 minutes ([id number]) Office Procedure - CPT: 32664-Uza Irrigation/Lavage ([id number]) EKG - CPT: 19673-Ecbotzwswvhudokiv, Complete ([id number]) Vision Screening - Vision Screenin - Vision Screening ([id number]) Additional Codes PHQ-9 - 79935 - PHQ-9 Billing: Yes ([id number]) Advance Care Planning Advance Care Planning discussion: Exists, not on file Date of discussion: 09/01/25 Who was present: self Forms completed: Health Care Proxy, Comfort care/DNR and Living will Time spent: 16-45 minutes Actual minutes spent: 16
[2025-09-01 13:07] VITALS: BP 138/76; PULSE 58; RESP 12; TEMP 36.5; O2SAT 98; BMI 30.4
--- OUTSIDE RECORDS SUMMARY | 2025-09-01 17:04 | XMS_ITS | Clinical Summary ---
Author Organization [facility] [address] [place] [address] [place] [phone] Phone Care Team Providers Care Web Engineer Name Role Phone Physician, No Pcp Primary Care Provider Unavaila ble Allergies Active Allergy Reactions Criticality Noted Date Comments Penicillins Rash 08/28/2024 Medications rosuvastatin (CRESTOR) 10 mg tablet Take 1 tablet (10 mg total) by mouth 1 (one) time each day. 4 Active diclofenac (VOLTAREN) 75 mg EC tablet TAKE 1 TABLET(75 MG) BY MOUTH TWICE DAILY. DO NOT CRUSH, CHEW, OR SPLIT 60 tablet 3 5 Active esomeprazole (NexIUM) [address] capsule Take 1 capsule (20 mg total) by mouth 2 (two) times a day. 5 Active omeprazole (PriLOSEC) [address] capsule Take 1 capsule (20 mg total) by mouth 1 (one) time each day. 4 08/18/20 25 Discontinu ed(Alterna te therapy) Hospital, Clinic, or Other Facility Administered Medication Ordered Dose Route Frequency Start Date End Date Status lidocaine (XYLOCAINE) 1 % injection 4 mLIndications:Primary osteoarthritis of left knee 4 mL Once PRN Procedure 08/18/2025 08/18/2025 Ended methylPREDNISolone acetate (DEPO-Medrol) injection 80 mgIndications:Primary osteoarthritis of left knee 80 mg Once PRN Procedure 08/18/2025 08/18/2025 Ended Active Problems Problem Noted Date Diagnosed Date Abnormal stress test 04/05/2025 Encounters Date Type Department Care Team Description 08/18/2025 11:30 AM EST Office Visit Orthopedics - [place] [address] [place] [phone] César Landers PA Primary osteoarthritis of left knee (Primary Dx) 08/18/2025 Telephone Orthopedics - [place] [address] [place] [phone] César Landers PA from Last 3 Months Social History Tobacco [...] on file Sexual Orientation Not on file Last Filed Vital Signs Vital Sign Reading Time Taken Comments Blood Pressure - - Pulse - - Temperature - - Respiratory Rate 16 08/18/2025 10:44 AM EST Oxygen Saturation - - Inhaled Oxygen Concentration - - Weight 73.9 kg (163 lb) 08/18/2025 10:44 AM EST Height 152.4 cm (5') 08/18/2025 10:44 AM EST Body Mass Index 31.83 08/18/2025 10:44 AM EST Plan of Treatment Health Maintenance Due Date [...] Screening 07/04/2024 Depression Screening 09/16/2024 COVID-19 Vaccine ( - 2024-2 6 season) 2025 Influenza Vaccine (#1) 2025 HIB [...] Procedure Name Priority Date/Time Associated Diagnosis Comments HI ARTHROCENTESIS/ASP IRATION/INJECTION MAJOR JOINT/BURSA W/O U/S GUIDANCE Routine 08/18/2025 11:30 AM EST Primary osteoarthritis of left knee from Last 3 Months Results * HI ARTHROCENTESIS/ASPIRATION/INJECTION MAJOR JOINT/BURSA W/O U/S GUIDANCE (08/18/2025 11:30 AM EST) Narrative César Landers PA - 08/18/2025 11:30 AM EST BARRERA Jean Baptiste 08/18/2025 11:04 AM L Inj/Asp: L knee Indications: pain Details: 22 G needle, anterolateral approach Medications: 4 mL lidocaine 1 %; 80 mg methylPREDNISolone acetate 80 mg/mL Outcome: tolerated well, no immediate complications Informed Consent: Site: Knee Laterality: Left Relevant [...] with patient: Verbal Pre-procedure timeout performed: yes us César RUST IN CLINIC/BEDSIDE ORDERABLES Fin al Result from Last [address] [facility] Care Teams Web Engineer Relationship Specialty Start Date End Date Physician, No Pcp PCP - General 01/20/25
--- OUTSIDE RECORDS SUMMARY | 2025-09-01 17:04 | XMS_ITS | Encounter Summary ---
Author Organization [facility] Address [address] [place] [address] Care Team Providers Care Director Customer Name Role Phone Physician, No Pcp Primary Care Provider Unavaila ble Encounter Details Date Type Department Care Team (Late st Contact Info) Description 08/18/2025 Telephone Orthopedics - [place] [address] [place] [phone] César Landers PA [address] [place] [phone] Social History Tobacco Use Types Packs/Day Years Used Date Smoking Tobacco: Never Passive Smoke Exposure: Past Smokeless Tobacco: Never Alcohol Use Standard Drinks/Week Comments Not Currently 0 (1 standard drink = 0.6 oz pur e alcohol) Comments No Sex and Gender Information Value Date Recorded Sex Assigned at Not on file Legal Sex Female 11:36 AM EDT Gender Identity Not on file Sexual Orientation Not on file documented as of this encounter Progress Notes * Neena Villafuerte MA - 08/18/2025 4:42 PM EST PA will be submitted closer to injection date. vf * BARRERA Jean Baptiste - 08/18/2025 11:05 AM EST Please request authorization for left knee viscosupplementation. Looks like she cannot receive thisuntil early October documented in this encounter Plan of Treatment Not on file documented as of this encounter Visit Diagnoses Not on filedocumented in this encounter Care Teams Director Customer Relationship Specialty Start Date End Date Physician, No Pcp PCP - General 01/20/25 documented as of this encounter
== END 2025-09-01 14:02 | disposition home or self-care (01) ==
LOC: HO.HMCFM 12:59
PROVIDERS: PCP Nurse Practitioner Family; Visit Provider Nurse Practitioner Family
DX: Z00.00 Encounter for general adult medical examination without abnormal findings (principal); E66.9 Obesity, unspecified; Z68.30 Body mass index [BMI] 30.0-30.9, adult; K21.9 Gastro-esophageal reflux disease without esophagitis; K44.9 Diaphragmatic hernia without obstruction or gangrene; H61.21 Impacted cerumen, right ear; L65.9 Nonscarring hair loss, unspecified; Z78.0 Asymptomatic menopausal state

== ENCOUNTER → 2025-09-01 12:58 | Outpatient (BNVA) | payer MEDICARE, OTHER, SELFPAY | PROVIDERS: PCP Nurse Practitioner Family; Visit Provider Nurse Practitioner Family | DX: K21.9 Gastro-esophageal reflux disease without esophagitis (principal); Z71.89 Other specified counseling; E66.9 Obesity, unspecified; L65.9 Nonscarring hair loss, unspecified; K44.9 Diaphragmatic hernia without obstruction or gangrene; H61.21 Impacted cerumen, right ear; Z78.0 Asymptomatic menopausal state; B00.9 Herpesviral infection, unspecified; L29.9 Pruritus, unspecified; Z13.31 Encounter for screening for depression; Z13.1 Encounter for screening for diabetes mellitus | CPT/HCPCS: 69209; 83036; 96127; 99212; 99497; G0404 ==